=== PATIENT | female | born 2000 | race Caucasian/White ===

== ENCOUNTER 2023-09-19 23:05 | Emergency (ER) | payer OTHER, SELFPAY ==
[2023-09-19 23:12] VITALS: BP 116/74; PULSE 103; RESP 18; TEMP 36.8; O2SAT 97; BMI 34.7
[2023-09-20 00:57] VITALS: BP 151/61; PULSE 88; RESP 16; TEMP 36.7; O2SAT 97
--- NOTE | 2023-09-20 01:42 | ED_ITS ---
HPI - Skin/Abscess/Foreign Bdy General Chief complaint: Skin/Abscess/Foreign Body Stated complaint: cyst Time Seen by Provider: 09/20/23 01:42 Source: patient Mode of arrival: ambulatory Limitations: no limitations History of Present Illness HPI narrative: Patient complaining of painful cystic swelling around the perirectal area for last 3 days does have a history of cyst in the past no fever no chills Related Data Previous Rx's Medication Instructions Recorded doxycycline hyclate 100 mg tablet 100 mg PO BID #20 tabs 09/20/23 Allergies Allergy/AdvReac Type Severity Reaction Status Date / Time No Known Allergies Allergy Unverified 07/09/20 17:27 [No Known Allergies*] Review of Systems 2 Review of Systems: Yes all other systems are reviewed and are negative PMFSH Social History Social History Alcohol intake: never Smoked in Last 30 Days: No Use of substances other than those prescribed or required for medical reasons: No Advance Directives: No Advance Directives Information Provided: No Patient : No Physical Exam 2 Vital Signs: Vital Signs: Last Vital Signs Temp 98.2 F 09/20/23 01:56 Pulse 98 09/20/23 01:56 Resp 16 09/20/23 01:56 BP 126/48 L 09/20/23 01:56 Pulse Ox 97 09/20/23 01:56 O2 Del Method Room Air 09/20/23 01:56 BMI result Body Mass Index 34.7 Skin: Full body images: 1. Small 2 x 2 cm fluctuant abscess left gluteal area Medications Administered Discontinued Medications Generic Name Dose Route Start Last Admin Trade Name Freq PRN Reason Stop Dose Admin Doxycycline Monohydrate 100 mg 09/20/23 01:46 09/20/23 02:08 Doxycycline Monohydrate 100 Mg Capsule PO 09/20/23 01:47 100 mg ONCE ONE Administration Lidocaine HCl 4 ml 09/20/23 01:44 09/20/23 02:09 Lidocaine Hcl 1 % Mpf 2 Ml Vial INFILTRATI 09/20/23 01:45 4 ml ONCE ONE Administration Medical Decision Making Medical Decision Making MDM Narrative: Patient's small abscess left gluteal area I and D done small amount of foul- smelling pus drained, will discharge patient on doxycycline Procedures Abscess I/D Site: ramakrishna-rectal (Small abscess left gluteal area fluctuant tender) Side (if applicable): left Local Anesthetic: lidocaine 1% Amount of anesthesia used (mL): 4 Technique: incised with blade Amount of fluid expressed (mL): 2 Sent for culture/gram staining?: No Irrigation: No Packing used?: none Discharge Plan Discharge Clinical Impression: Abscess of skin or subcutaneous tissue Patient Disposition: Home, Self-Care Instructions: Abscess Incision and Drainage (DC) Additional Instructions: Local care as adv Take antibiotics as prescribed Prescriptions: New doxycycline hyclate 100 mg tablet 100 mg PO BID Qty: 20 0RF Interventions: ED Discharge Assessment Last Done: 09/20/23 02:38 Discharge Date/Time: 09/20/23 02:00
[2023-09-20 01:56] VITALS: BP 126/48; PULSE 98; RESP 16; TEMP 36.8; O2SAT 97
[2023-09-20] MEDS: Doxycycline Monohydrate 100 MG CAPSULE PO (02:08)
[2023-09-20] MEDS: Lidocaine HCl 1 % MPF 2 ML VIAL 4 ML INFILTRATI (02:09)
== END 2023-09-20 02:00 | disposition home or self-care (01) ==
PROVIDERS: Emergency Provider Internal Medicine
DX: L02.31 Cutaneous abscess of buttock (principal)
CPT/HCPCS: 10060; 99284

== ENCOUNTER 2023-12-24 23:25 | Emergency (ER) | payer OTHER, SELFPAY ==
[2023-12-24 23:33] VITALS: BP 121/80; PULSE 99; RESP 18; TEMP 36.9; O2SAT 97; BMI 29.8
[2023-12-25 00:41] LABS: IDNOW Serial# 6674DD1D; Strep A Nucleic Acid Negative (Negative)
--- NOTE | 2023-12-25 00:51 | ED_ITS ---
HPI - General Adult General Chief complaint: General Medical Stated complaint: strep Time Seen by Provider: 12/25/23 00:21 Source: patient Mode of arrival: ambulatory Limitations: no limitations History of Present Illness HPI narrative: Patient been complaining of sore throat and left ear pain for last 2 days painful to swallow no other family member sick no runny nose no shortness of breath Related Data Previous Rx's Medication Instructions Recorded doxycycline hyclate 100 mg tablet 100 mg PO BID #20 tabs 09/20/23 amoxicillin 500 mg capsule 500 mg PO TID #30 caps 12/25/23 Allergies Allergy/AdvReac Type Severity Reaction Status Date / Time No Known Allergies Allergy Verified 12/24/23 23:33 [No Known Allergies*] Review of Systems Review of Systems: Yes all other systems are reviewed and are negative [facility] Social History Social History Alcohol intake: never Advance Directives: No Advance Directives Information Provided: No Physical Exam ED Vital Signs: Vital Signs - 24 hr 12/24/23 23:33 Temperature 98.4 F Pulse Rate 99 Respiratory Rate 18 Blood Pressure 121/80 Pulse Oximetry 97 Oxygen Delivery Method Room Air BMI result Body Mass Index 29.8 Appearance: Alert. Oriented X3. No acute distress. ENT: Pharyn erythematous with bad odor l. Oral Mucosa moist Neck: Normal inspection. Neck supple. CVS: Normal heart rate and rhythm. Pulses normal. Respiratory: No respiratory distress. Equal air entry bilateral, no wheezing/rales/rhonchi Skin: Skin warm and dry. Normal skin color. Normal skin turgor. Extremities: No lower extremity edema. Neuro: Oriented X 3. Medical Decision Making Lab Data [facility] Lab Attestation statement: I reviewed the patient's lab results. Labs: Lab Results 12/25/23 12/25/23 Range/Units 00:25 00:55 COVID-19 (LOW) Negative (Negative) COVID-19 Clin Com See Note S. pyogenes GrpA NILO Negative (Negative) Discharge Plan Discharge Clinical Impression: Acute pharyngitis Patient Disposition: Home, Self-Care Instructions: Pharyngitis (ED) Additional Instructions: Drink plenty of fluid Your COVID and strep tests are negative Take antibiotic as prescribed for pharyngitis Prescriptions: New amoxicillin 500 mg capsule 500 mg PO TID Qty: 30 0RF No Action doxycycline hyclate 100 mg tablet 100 mg PO BID Qty: 20 0RF
[2023-12-25 01:11] LABS: COVID-19 Test Negative (Negative); IDNOW Serial# 152EDE1D
--- NOTE | 2023-12-25 02:05 | ED.GENADULT ---
HPI - General Adult General Chief complaint: General Medical Stated complaint: strep Time Seen by Provider: 12/25/23 00:21 Source: patient Mode of arrival: ambulatory Limitations: no limitations Related Data Previous Rx's Medication Instructions Recorded doxycycline hyclate 100 mg tablet 100 mg PO BID #20 tabs 09/20/23 amoxicillin 500 mg capsule 500 mg PO TID #30 caps 12/25/23 Allergies Allergy/AdvReac Type Severity Reaction Status Date / Time No Known Allergies Allergy Verified 12/24/23 23:33 [No Known Allergies*] PMFSH Social History Social History Alcohol intake: never Advance Directives: No Advance Directives Information Provided: No Physical Exam ED Vital Signs: Vital Signs - 24 hr 12/24/23 23:33 Temperature 98.4 F Pulse Rate 99 Respiratory Rate 18 Blood Pressure 121/80 Pulse Oximetry 97 Oxygen Delivery Method Room Air BMI result Body Mass Index 29.8 Medical Decision Making Lab Data Labs: Lab Results 12/25/23 12/25/23 Range/Units 00:25 00:55 COVID-19 (LOW) Negative (Negative) COVID-19 Clin Com See Note S. pyogenes GrpA NILO Negative (Negative) Discharge Plan Discharge Clinical Impression: Acute pharyngitis Patient Disposition: Home, Self-Care Instructions: Pharyngitis (ED) Additional Instructions: Drink plenty of fluid Your COVID and strep tests are negative Take antibiotic as prescribed for pharyngitis Prescriptions: New amoxicillin 500 mg capsule 500 mg PO TID Qty: 30 0RF No Action doxycycline hyclate 100 mg tablet 100 mg PO BID Qty: 20 0RF Stand Alone Forms: Work/School Release
[2023-12-25] MEDS: Amoxicillin 500 MG CAPSULE PO (02:14)
== END 2023-12-25 02:44 | disposition home or self-care (01) ==
PROVIDERS: Emergency Provider Internal Medicine
DX: J02.9 Acute pharyngitis, unspecified (principal); Z11.52 Encounter for screening for COVID-19
CPT/HCPCS: 87635; 87651; 99282; 99283